=== PATIENT | female | born 1980 ===

== ENCOUNTER 2021-10-24 10:00 | Inpatient (IN) | payer OTHER ==
[~2021-10-24] VITALS: Ht 160 cm; Wt 63.5 kg
[2021-11-07] MEDS ORDERED: FLUCONAZOLE150 MG (13:01)
[2021-11-07] MEDS ORDERED: SPRINTEC 28 DA1 EACH (13:02)
== END 2021-11-08 10:52 | disposition home or self-care (01) | DRG 743 ==
LOC: SURH 10-28 10:00 → O/R 11-07 10:44 → OB/GYN 11-07 18:41
PROVIDERS: ADMIT Obstetrics & Gynecology; ATTEND Obstetrics & Gynecology
PROC: 0UT74ZZ Resection of Bilateral Fallopian Tubes, Percutaneous Endoscopic Approach (ICD-10-PCS; 2021-11-07)
PROC: 0TJB8ZZ Inspection of Bladder, Via Natural or Artificial Opening Endoscopic (ICD-10-PCS; 2021-11-07)
PROC: 0UT94ZZ Resection of Uterus, Percutaneous Endoscopic Approach (ICD-10-PCS; principal; 2021-11-07 11:15)
DX: D25.1 Intramural leiomyoma of uterus (principal); D25.2 Subserosal leiomyoma of uterus; D25.0 Submucous leiomyoma of uterus; N80.0 Endometriosis of uterus; N72 Inflammatory disease of cervix uteri; Z20.822 Contact with and (suspected) exposure to COVID-19

== ENCOUNTER 2021-11-04 15:05 | Outpatient (CLI) | payer OTHER | END 2021-11-04 16:15 | disposition home or self-care (01) | LOC: LAB 15:05 | PROVIDERS: ATTEND Obstetrics & Gynecology | DX: Z11.52 Encounter for screening for COVID-19 (principal); Z20.822 Contact with and (suspected) exposure to COVID-19 ==